=== PATIENT | female | born 1965 | race Caucasian/White ===

== ENCOUNTER 2017-01-30 06:52 | Day surgery (SDC) | payer BC ==
--- NOTE | 2017-01-29 23:11 | PREOPHP ---
DATE OF ADMISSION: 01/30/2017 Patient is having surgery on Monday, the . HISTORY OF PRESENT ILLNESS: This is a 51-year-old female, 2, para 2, 0, with 3 living children. Last menstrual period was April 20. This patient has been referred to me due to bleeding that has been off and on with hot flashes and perspiration. Ultrasound done showed an endometrial hyperplasia. She was referred for an ablation. She has been anemic on iron. She had 1 and tubal ligation. She had twin girls spontaneous delivery vaginally at 28 weeks, and she had diabetes. MEDICATIONS: She is on: 1. Metformin 500 b.i.d. 2. Progestin 10 mg. 3. Iron. ALLERGIES: SHE HAS NO ALLERGIES. REVIEW OF SYSTEMS: Noncontributory. FAMILY HISTORY: Is also noncontributory to the case. PAST MEDICAL HISTORY: The patient had a previous , tubal ligation, diabetes, and tummy tuck. PHYSICAL EXAMINATION: GENERAL APPEARANCE: Good. Patient is obese. VITAL SIGNS: Blood pressure is 140/90, pulse is 80, temperature 98.6. She weighs 203, and she is 5 feet, 2 inches. HEAD/NECK: Normal. CHEST: Clear. HEART: Normal sinus rhythm. LUNGS: Clear. BREASTS: Soft, nontender, no masses. ABDOMEN: Soft, nontender, no masses. GENITOURINARY: Negative. GYNECOLOGIC: Cervix, uterus with retroversion, with fibroids about 10 weeks' size. Adnexa are negative, and the lymph nodes negative. RECTAL EXAMINATION: Negative. EXTREMITIES: Normal. DIAGNOSES: 1. Perimenopausal syndrome. 2. Uterine fibroids. 3. Intractable pelvic pain and bleeding. 4. Anemia. PLAN: She is undergoing a fractional D and C, hysteroscopy, and hydrothermal ablation. She has been advised of the possible risks and possible complications of the procedure with her alternatives and options. Written information was provided. She had no more questions and agreed to go ahead with the procedure with full understanding and no more questions. Dictated By: Rossy King MD /[email or web address]/marc /Document#: [id number]
[2017-01-30] VITALS (10 sets, daily range): BP systolic 106–146; BP diastolic 63–96; PULSE 80–110; RESP 10–22; Ht 157.5 cm; Wt 91.0 kg
[~2017-01-30] VITALS: Ht 157.5 cm; Wt 91.0 kg
[2017-01-30] MEDS ORDERED: PRENAT PO (08:05)
[2017-01-30] MEDS ORDERED: FERR325C PO (08:08)
[2017-01-30] MEDS ORDERED: METF500T4 PO (08:09)
--- NOTE | 2017-01-30 08:44 | HPN ---
Date/Time of Note Date/Time of Note DATE: 01/30/17 TIME: 08:44 Interval H&P Admission Note Pt. seen H&P reviewed: No system changes SUSANNA CONSTANTINO MD Jan 30, 2017 08:44
[2017-01-30] MEDS ORDERED: HYDROmorphONE (0.2 MG/ML) 10ML SYG IV PRN (09:00)
[2017-01-30] MEDS ORDERED: MEPERIDINE 25 MG INJ IV PRN (09:00)
[2017-01-30] MEDS ORDERED: PROCHLORPERAZINE 10 MG INJ IV PRN (09:00)
[2017-01-30] MEDS ORDERED: DIPHENHYDRAMINE 50 MG INJ IV PRN (09:00)
[2017-01-30] MEDS ORDERED: OXYCODONE/ACETAMINOPHEN (5/325) TAB PO PRN (09:00)
[2017-01-30] MEDS ORDERED: ONDANSETRON 4 MG INJ IV PRN (09:00)
[2017-01-30] MEDS ORDERED: MIDAZOLAM 1 MG/ML 2 ML INJ ONE (09:50)
[2017-01-30] MEDS ORDERED: FENTAnyl 50 MCG/ML VIAL ONE (09:50)
[2017-01-30] MEDS ORDERED: LIDOCAINE 2% (SDV) 5 ML INJ ONE (09:58)
[2017-01-30] MEDS ORDERED: ONDANSETRON 4 MG INJ ONE (09:58)
[2017-01-30] MEDS ORDERED: CEFAZOLIN 1 GM INJ ONE (09:58)
[2017-01-30] MEDS ORDERED: METOCLOPRAMIDE 10 MG INJ ONE (09:58)
[2017-01-30] MEDS ORDERED: PROPOFOL 20 ML ONE (09:58)
[2017-01-30] MEDS ORDERED: PHENYLephrine (100 MCG/ML) 5ML SYG ONE (10:00)
[2017-01-30] MEDS ORDERED: KETOROLAC 30 MG INJ ONE (10:35)
--- NOTE | 2017-01-30 10:51 | PD.PPDC ---
[employer] Discharge Instruction Condition Patient Condition: Good Diet Diet: Resume Regular Diet Activity/Restrictions Activity: Normal Activity May Shower Restrictions: No Exercising No Lifting No Driving No Sexual Activity Nothing in the Vagina No Erda No Tampons, douche Follow-up Follow-up with Physician: 2, Week/Weeks Return to clinic for EMBEDDED [employer]ER Instructions: Fever greater than 101 Chills Worsening abdominal pain Excessive Vaginal Bleeding More than 2 pads per hour Unable to tolerate diet SUSANNA CONSTANTINO MD Jan 30, 2017 10:51
--- NOTE | 2017-01-30 10:56 | OPR ---
Date/Time of Note Date/Time of Note DATE: 01/30/17 TIME: 10:54 Operative Report Procedure Date: Jan 30, 2017 Preoperative Diagnosis PERIMENOPAUSAL BLEEDING UTERINE FIBROIDS INTRACTABLE PELVIC PAIN AND BLEEDING ANEMIA Postoperative Diagnosis SAME Operation Performed FRACTIONAL D&C HYSTEROSCOPY AND HTA Surgeon: SUSANNA CONSTANTINO MD Anesthesia Type: general Anesthesiologist: YONI AUGUSTIN MD Estimated Blood Loss: minimal Transfusion Required: no Specimens ENDOMETRIAL CONTENTS Grafts/Implants: none Complications: no Pt Condition Post Procedure: stable Disposition: PACU SUSANNA CONSTANTINO MD Jan 30, 2017 10:56
[2017-01-30] MEDS: FENTAnyl 50 MCG/ML VIAL IV PRN ×2 (11:03→11:15)
[2017-01-30] MEDS ORDERED: DEXTROSE 5%-LR 1,000 ML IV SCH (13:00)
--- NOTE | 2017-01-30 17:27 | OPR ---
DATE OF OPERATION: 01/30/2017 OPERATION PERFORMED: Hysteroscopy, fractional D and C, and hydrothermal ablation. PREOPERATIVE DIAGNOSES: 1. Perimenopausal bleeding. 2. Uterine fibroids. 3. Intractable pelvic pain and bleeding. 4. Anemia. POSTOPERATIVE DIAGNOSES: 1. Perimenopausal bleeding. 2. Uterine fibroids. 3. Intractable pelvic pain and bleeding. 4. Anemia. SURGEON: Dr. King. ANESTHESIOLOGIST: . ANESTHESIA: General. OPERATIVE PROCEDURE: The patient was given general anesthesia, placed in the lithotomy position. The perineal vaginal area were prepped and draped. A confirmatory examination under anesthesia revealed that there was external genitalia with prolapse of the uterus with a fibroid about 8 weeks size. Adnexa were normal. The vaginal speculum was applied. The cervix was held with the forceps and the cervical curettage was done. The uterus was sounded to a depth of 8 cm and dilated slightly and systematically curetting of the endometrial cavity was done and this tissue was sent for pathology. At this time the hysteroscope was applied, and the lining of the uterus was observed. There was a polyp in the fundus of the uterus. The hydrothermal ablation hysteroscope had been placed and the media was warmed up to 88 90 degrees Celsius for 10 minutes. The media was spiculated inside. Using 2 Allis to hold the cervix on both sides to prevent any leakage. The visualization of the endometrium after in the media was injected at 90 degrees was evaluated with good burning condition with good change of color. At this time forceps were placed in to bring out any possible material that was loose as possibly belonging to a polyp. The procedure was finished by removing all the instruments. The patient tolerated the procedure well and left the OR awake and stable. Sponge counts and instrument counts were correct. Intravenous antibiotics were given for prophylaxis. Dictated By: Rossy King MD /manuel/john /Document#: [id number]
== END 2017-01-30 13:38 | disposition home or self-care (01) ==
LOC: SDS 06:52
PROVIDERS: ATTEND Obstetrics & Gynecology
DX: N92.4 Excessive bleeding in the premenopausal period (principal); D25.9 Leiomyoma of uterus, unspecified; E11.9 Type 2 diabetes mellitus without complications; E78.5 Hyperlipidemia, unspecified; E66.9 Obesity, unspecified; Z68.36 Body mass index [BMI] 36.0-36.9, adult
CPT/HCPCS: 58558; 82962; 88305; J0690; J1885; J2250; J2370; J2405; J2765; J3010; J7121; Z7512; Z7610